=== PATIENT | female | born 1990 | race Caucasian/White ===

== ENCOUNTER 2021-01-30 03:44 | Emergency (ER) | payer MEDICAID, OTHER ==
[~2021-01-30] VITALS: Ht 157.5 cm; Wt 50.0 kg
[2021-01-30] MEDS ORDERED: ONDANSETRON 2MG/ML, 2ML IVPush ONE (04:00)
[2021-01-30] MEDS ORDERED: SODIUM CHLORIDE 0.9% 1,000ML IVBOLUS ONE (04:00)
[2021-01-30] MEDS ORDERED: SODIUM CHLORIDE FLUSH 10ML SYR IVF ONE (04:00)
[2021-01-30] MEDS ORDERED: ONDANSETRON 2MG/ML, 2ML ONE (04:05)
[2021-01-30] MEDS ORDERED: MORPHINE SULFATE 4 MG/ML, 1ML ONE ×2 (04:06→06:06)
[2021-01-30] MEDS: MORPHINE SULFATE 4 MG/ML, 1ML IVPush PRN ×2 (04:20→06:07)
[2021-01-30 04:39] LABS: BASOPHILS % (AUTO) 0 % (0-1); EOSINOPHILS % (AUTO) 1 % (1-7); LYMPHOCYTES % (AUTO) 10 % (22-44); MEAN CORPUSCULAR HEMOGLOBIN 21.3 pg (27.0-34.8); MEAN PLATELET VOLUME 6.4 fL (7.4-10.4); MONOCYTES % (AUTO) 6 % (2-9); NEUTROPHILS % (AUTO) 83 % (42-75); PLATELET COUNT 754 x10^3/uL (130-400); RED BLOOD COUNT 5.16 x10^6/uL (3.82-5.3); RED CELL DISTRIBUTION WIDTH 21.3 % (9.6-15.2)
--- NOTE | 2021-01-30 04:42 | NUR ---
PATIENT UPDATED ON PLAN OF CARE. NO NOTED ADDITIONAL NEEDS AT THIS TIME. PATIENT VERBALIZED UNDERSTANDING OF SELF CARE AND PLAN OF CARE. CALL LIGHT WITHIN REACH, BED IN LOWEST LOCKED POSITION, SIDE RAILS X 2 UP. VSS. WILL CONTINUE TO MONITOR.
[2021-01-30 04:46] LABS: ANION GAP 6 mmol/L (5-15); CALCIUM 9.1 mg/dL (8.5-10.1); CHLORIDE 109 mmol/L (98-107)
[2021-01-30 04:51] LABS: ALANINE AMINOTRANSFERASE 44 U/L (12-78); ALKALINE PHOSPHATASE 221 U/L (45-117); BILIRUBIN,TOTAL 0.3 mg/dL (0.2-1.0); CREATININE 0.64 mg/dL (0.55-1.02); TOTAL PROTEIN 7.8 g/dL (6.4-8.2)
--- NOTE | 2021-01-30 05:46 | NUR ---
PATIENT STATED THAT HER PAIN IS IMPROVED. DENIES ANY NEEDS AT THIS TIME FOR ADDITIONAL PAIN MEDICATIONS. VSS.
[2021-01-30 05:50] LABS: <PLATELET ESTIMATE> INCREASED; <PLT MORPHOLOGY> NORMAL PLT MORPH; ANISOCYTOSIS 1+; HYPOCHROMIA 1+; MICROCYTOSIS 1+
[2021-01-30 05:51] LABS: OVALOCYTES 1+; POLYCHROMASIA 1+
[2021-01-30] MEDS ORDERED: OMNIPAQUE 350 MG/ML, 100ML BOTTLE ONE (05:53)
--- NOTE | 2021-01-30 06:10 | NUR ---
PATIENT DENIES ANY ADDITIONAL NEEDS AT THIS TIME. CALL LIGHT WITHIN REACH. BED IN LOWEST LOCKED POSITION, SIDE RAILS X 2 UP. WILL CONTINUE TO MONITOR.
--- NOTE | 2021-01-30 06:29 | NUR ---
PATIENT UP TO RESTROOM VIA BEDSIDE COMMODE. PT UPDATED ON PLAN OF CARE. ADDITIONAL PAIN MEDICATIONS GIVEN FOR 8/10 PAIN. VSS. FAMILY AT BEDSIDE WITH PATIENT.
--- NOTE | 2021-01-30 06:51 | NUR ---
REPORT GIVEN TO BELTRAN TALAVERA. NO FURTHER QUESTIONS AT TIME OF REPORT.
--- NOTE | 2021-01-30 06:59 | NUR ---
REPORT RECEIVED FROM ESPERANZA GONG; PT UPRIGHT ON GURNEY AWAKE & CALM WITH ERP & BF AT BS, RESPONDS APPROP TO STAFF, NAD- REPORTS PAIN RELIEF AFTER MEDS, COMFORT MEASURES PROVIDED, CALL LIGHT WITHIN REACH.
--- NOTE | 2021-01-30 08:01 | NUR ---
PT REMAINS UPRIGHT ON GURNEY AWAKE & CALM, RESPONDS APPROP TO STAFF, NO NEEDS ATR THIS TIME, CALL LIGHT WITHIN REACH.
[2021-01-30 08:27] VITALS: BP 115/72
--- NOTE | 2021-01-30 08:59 | NUR ---
Patient given discharge instructions and Rx, they have confirmed that they understand the instructions. Patient ambulatory with steady gait. NAD, all questions answered appropriately, denies additional needs at this time. No personal belongings left in room after discharge.
== END 2021-01-30 09:11 | disposition home or self-care (01) ==
LOC: ED 08:55
DX: K50.00 Crohn's disease of small intestine without complications (principal); R10.84 Generalized abdominal pain; R11.2 Nausea with vomiting, unspecified; R19.7 Diarrhea, unspecified
CPT/HCPCS: 36415; 74177; 80053; 83690; 84703; 85025; 96361; 96374; 96375; 96376; 99285; J2270; J2405; J7030; Q9967